=== PATIENT | male | born 1945 | race Caucasian/White ===

== ENCOUNTER 2019-11-08 06:21 | Inpatient (IN) | payer MEDICARE, OTHER, SELFPAY ==
[2019-10-25 09:46] VITALS: BMI 40.7
[2019-11-04 12:38] VITALS: BP 121/89; PULSE 64; RESP 92; O2SAT 14
[2019-11-08] VITALS (19 sets, daily range): BP systolic 93–149; BP diastolic 56–88; PULSE 60–83; RESP 13–97; TEMP 35.8–37.4; O2SAT 13–98; BMI 40.7
--- NOTE | 2019-11-08 | DI.RAD.S_ITS ---
PROCEDURE: XR LUMBAR SPINE 2-3V INDICATIONS: L2-3, L3-4 TLIF TECHNIQUE: 2 views of the lumbar spine were acquired. COMPARISON: None. FINDINGS: Bones: Normal alignment is established after placement of transverse pedicle screws and vertical fixation rods crossing from L2-L4, with interbody cage disc prostheses devices at the 2 intervening disc levels. Soft tissues: Overlying bowel gas pattern is normal. No suspicious soft tissue calcifications. IMPRESSION: Normal alignment established postoperatively, posterior fusion L2-L4 with interbody cage disc prosthesis placement centrally within the disc spaces as expected. Dictated by: Oniel Riley M.D. on 11/08/2019 at 12:47 Approved by: Oniel Riley M.D. on 11/08/2019 at 12:48
--- NOTE | 2019-11-08 07:19 | SUR.PREOP ---
pt reports has chronic numbness in both feet.
--- NOTE | 2019-11-08 07:43 | PM.PREOP ---
Pre-operative Note Interval Note History & Physical reviewed/Exam performed by Physician: Yes Changes to H&P: No
[2019-11-08] MEDS: LACTATED RINGERS 1,000 ML 42 ML IV ×2 (07:48→09:19)
[2019-11-08] MEDS: CLINDAMYCIN 900 MG/50 ML PIGGYBACK 50 MG IV ×3 (07:51→23:53)
--- NOTE | 2019-11-08 08:50 | SUR.OPER ---
Prone on spine table, head in foam head support, padded chest and pelvic supports, gel pad at knees, lower legs supported by pillows; nipples, genitalia and toes free of pressure, arms secured on foam padded arm boards at <90 degrees abduction. Tape over blanket at thigh secured to table.
[2019-11-08] MEDS: BUPIVACAINE LIPOSOME 266 MG/20 ML VIAL INJ (09:03)
[2019-11-08] MEDS: BUPIVACAINE 0.25% W/ EPI 30 ML VIAL INJ (09:03)
[2019-11-08] MEDS: ACETAMINOPHEN 1,000 MG/100 ML VIAL IV (11:20)
--- NOTE | 2019-11-08 12:14 | PM.OP.1 ---
Operative Date/Time/Diagnoses Date of procedure: 11/08/19 Time of procedure: 07:40 Pre-op diagnosis: 1. L2-3, L3-4 spinal stenosis 2. Lumbar scoliosis 3. Lumbar spondylosis with radiculopathy Post-op diagnosis: same Procedure & Clinicians Procedure: 1. L2-3, L3-4 Postero-lateral and posterior interbody fusion 2. L2-3, L3-4 interbody cage placement. 3. L2-3, L3-4 decompressive laminectomy with bilateral facetecomies 4. L2-3, L3-4 Posterior segmental instrumentation 5. [place] of bone marrow from iliac crest 6. Utilization of microsurgical technique and operating microscope Same procedure as scheduled: Yes Indications: Patient has been having chronic back pain and worsening lumbar radiculopathy. Patient failed multiple conservative management with worsening pain weakness and numbness in her lower extremity. Patient has been having difficulty performing activity of daily living. After discussing risks benefits of treatment options, patient elected proceed with surgery. Surgeon: Brannon Kamara National Sales: Angelita Cummins Click Yes if Unassisted: No Anesthesia Type: General Operative Notes Closure Type: primary Specimen(s): none sent Prosthetic devices, grafts, tissues, transplants, or devices: Globus revolve, Rise cages Applied: catheter Estimated Blood Loss (mL): 100 Blood products transfused: none Procedure in detail: Patient was seen in the preoperative area. Risks and benefits of the surgery was discussed with the patient. Informed consent was obtained from the patient and placed in the chart. Surgical site was marked. Patient was taken to the operative room. General anesthesia was administered. Prophylactic antibiotic was given to the patient less than 30 min before the incision was made. Patient was placed into a prone position on the Isai table. Patient's back was then prepped and draped in the sterile fashion. Time-out was performed at this time. Using AP and lateral C-arm imaging the interval between L2-3, L3-4 was identified and marked on patient's back. A 2 inch incision 2 in from midline was made on the right side first. The fascia was incised in line with skin incision. Globus MARS retractors was placed inside the incision and docked onto the L2 and L3 lamina. Using microsurgical technique and operating microscope, a L2 and L3 laminectomy and L2-3, L3-4 facetectomy was performed using a Kerrison rongeur. The disc space at L2-3, L3-4 was identified. And a total diskectomy was performed at L2-3, L3-4 level. The endplates were decorticated using a rasp and shaver. The total diskectomy and decortication was performed at L2-3, L3-4 level in order to to accomplish a L2-3, L3-4 fusion. The local bone from the laminectomy and facetectomy was saved for local bone grafting. After the total diskectomy and decortication was completed, Bio4 bone graft material was combined with local bone that was harvested earlier. At this time, a separate skin is incision was made over the iliac crest. A Jamshidi needle was inserted into the iliac crest through a separate skin incision. 5 cc of bone marrow aspiration was obtained through the separate skin incision using a Jamshidi needle from the iliac crest. The bone marrow aspiration was combined with local bone and the Bio4 bone grafting material. The bone grafting material was placed into the L2-3, L3-4 interbody space along with two cages, one expandable cage at each level. The cages were expanded to their maximum height using the torque limiting screwdriver. At this time a mirror image incision was made on the left side. The fascia was incised in line with the skin incision. Globus MARS retractor was inserted and docked onto the L2-3, L3-4 posterolateral gutter. Using the power drill, posterior-lateral decortication was performed at L2-3, L3-4 level until bleeding cortical bone was identified. The remaining bone grafting material was placed into the L2-3, L3-4 posterior lateral gutter he order to accomplish posterolateral fusion at the L2-3, L3-4 levels. Using the double C-arm technique, pedicle screws were placed into the L2, L3, L4 pedicles bilaterally. This was done by placing the Jamshidi needle into the pedicles, then placing the guidewires over the Jamshidi needle, and finally placing the cannulated screws over the guidewires bilaterally. After the pedicle screws were placed, 2 titanium rods was locked into the heads of the pedicle screws using locking caps and torque limiting screwdriver. Total 6 pedicles screws were placed. After all the hardware was placed, and confirmed with AP and lateral C-arm imaging, the wound was then irrigated with sterile normal saline and packed with Ray-Luz Marina gauze for 3 min to accomplish hemostasis. After the gauze was removed the deep fascia was closed with #1 Vicryl suture. The subcutaneous layer was closed with 2-0 Vicryl. The skin was closed with skin fahad. Patient tolerated the procedure well. There were no complications. Complications: none Post-operative Condition: stable Disposition: PACU Plan for aftercare: Admit to inpatient hospital
[2019-11-08] MEDS: HYDROMORPHONE 2 MG INJ IV ×4 (12:45→13:45)
[2019-11-08] MEDS: LORazepam 2 MG/ML INJ 0.25 MG IV ×5 (12:55→14:00)
[2019-11-08] MEDS: hydrOXYzine 50 MG/ML INJ 25 MG IM (12:58)
--- NOTE | 2019-11-08 14:31 | SUR.PHASEI ---
beside report given to Estuardo Flores RN. Pt stable, some restlessness remains due to back pain. Pt was medicated with Dilaudid, ativan and vistaril for comfort. Cpap remained in use during recovery phase. at bedside. Pt transferred in stable condition
[2019-11-08] MEDS: SODIUM CHLORIDE 0.9% 1,000 ML 100 ML IV ×2 (14:36→22:44)
--- NOTE | 2019-11-08 16:29 | PC.NURSE ---
Addendum entered by Zari Lenz R.N. 11/08/19 22:05: Pt resting quietly all evening. Med @ 2030 for discomfort. IVF continue as per orders. Beltran cath patent clear yellow urine. SCD in place. Call light w/in reach, bed alarm on for pt safety. Continue w/plan of care. Original Note: Pt resting quietly, assisted to BSC. Had episode of apparent vagal response, B/P decreased Lungs clear/diminished. SpO2 96% 2L Dsg to surgical back C/D/with shadow drainage IV of LR infusing into the LAC @ 125cc/hr via pump w/o incidence. Foot SCD in place. Call light w/9in reach, bed alarm on for pt safety.
--- NOTE | 2019-11-08 16:35 | PT-IP ANOTE ---
Received PT orders and attempted to initiate evaluation. According to RECREATION ADVISER, pt wanted to get up to the BSC. BP prior to activity was 133/76 HR 64. He completed log roll to his right side and supine to sit mod A x 1. Stand step pivot transfer to bedside commode on pt's right side required mod A x 2 for safety with pt exhibiting excessive posterior lean. He struggled to keep his eyes open sitting on the commode. BP was assessed at 51/24 HR 71. Pt was able to be roused enough to transfer back to the bed mod A x 2 using the FWW. He was positioned in trendelenberg with BP recovering to 137/88 HR 61 within 3 minutes. Pt was left with nursing attending. PT will follow up in the morning for evaluation.
[2019-11-08] MEDS: OXYCODONE IR 10 MG TABLET PO ×3 (16:58→23:53)
[2019-11-08] MEDS: DOCUSATE 100 MG CAPSULE PO (20:32)
[2019-11-08] MEDS: SENNOSIDES 8.6 MG TABLET 17.2 MG PO (20:33)
[2019-11-08] MEDS: ATORVASTATIN 20 MG TABLET 80 MG PO (20:33)
[2019-11-08] MEDS: carvediloL 25 MG TABLET PO (20:36)
[2019-11-09] VITALS (10 sets, daily range): BP systolic 121–159; BP diastolic 51–79; PULSE 60–76; RESP 18–20; TEMP 36.4–38.2; O2SAT 92–95
--- NOTE | 2019-11-09 00:21 | PC.NURSE ---
Addendum entered by Lashawn Cordoba R.N. 11/09/19 04:46: Patient reports sleep apnea and has CPAP with so CPAP applied and oxygen off; will monitor for need to bleed O2 into CPAP Addendum entered by Lashawn Cordoba R.N. 11/09/19 02:47: Patient reportedly trying to crawl out of bed stating he is in so much pain. Rates severity as 8/10; medicated with IV Dilaudid. Original Note: Patient is alert and oriented. Breath sounds diminished but CTA with RA sat of 89% so oxygen started at 2L/min with sat now at 93%. HRR. Denies nausea. BT hypoactive; denies flatus. Indwelling catheter is patent; urine is clear yellow. Dressing to back is intact with with shadow drainage. Needing assistance to reposition due to pain. Pain currently at 9/10 so medicated with Oxycodone and ice applied after repositioning. Wearing bilateral calf SCD's. CMS is intact. Fall risk score is moderate; bed alarm is activated.
[2019-11-09] MEDS: HYDROMORPHONE 0.5 MG INJ IV ×5 (02:45→22:12)
[2019-11-09] MEDS: OXYCODONE IR 10 MG TABLET PO ×6 (04:32→23:46)
[2019-11-09 05:13] LABS: Hematocrit 39.5 % (41-53); Hemoglobin 13.5 g/dL (13.5-17.5)
--- NOTE | 2019-11-09 07:34 | PM.PNPO.1 ---
Subjective Subjective Date Patient Seen: 11/09/19 Time Patient Seen: 07:34 Interval history: POD #1 s/p L2-[address] Kamara. Patient is having a lot of pain in low back requiring Dilaudid. Has brown catheter in place. He has not been up with PT yet. Exam Vital Signs (past 8 hours): - 11/08/19 23:40 11/09/19 03:45 Temperature 99.3 F 99.4 F Pulse Rate 69 64 Respiratory Rate 14 18 Blood Pressure 119/69 121/63 Pulse Oximetry 90 L 95 Oxygen Delivery Method Nasal Cannula Oxygen Flow Rate 2 Narrative Exam Narrative: Patient sitting on bedside in NAD. He is alert and oriented X3. Dressing has shadow drainage. He was able to stand up at bedside. Calves are soft, compressible, and nontender bilaterally. Objective Labs Result Diagrams: 11/09/19 04:45 Labs: Laboratory Results - last 24 hr 11/09/19 04:45 Hgb 13.5 Hct 39.5 L Assessment & Plan Post-op Postoperative Procedures: Procedures Operation Date: 11/08/19 07:45 Actual Procedures Side Surgeon p L2-3, L3-4 TLIF w/ posterior instrumentation Brannon Kamara MD Patient will mobilie with PT today. No excessive bending, lifting, or twisting. Will give one time dose of decadron for increased pain. Remove brown catheter this AM. Plan to DC once mobilizing safely with adequate pain control. Quality VTE Deep Vein Thrombosis/Pulmonary Embolism Present on Admission: No
[2019-11-09] MEDS: DEXAMETHASONE 10 MG/ML VIAL IV (07:44)
[2019-11-09] MEDS: DOCUSATE 100 MG CAPSULE PO ×2 (07:44→19:36)
[2019-11-09] MEDS: carvediloL 25 MG TABLET PO ×2 (07:45→19:35)
[2019-11-09] MEDS: SODIUM CHLORIDE 0.9% FLUSH 10 ML IV ×4 (07:49→22:14)
--- NOTE | 2019-11-09 09:16 | CM.DANOTE ---
Addendum entered by Bonnie Turner LPN 11/09/19 15:47: Met with pt as planned after review of his therapy notes for today. Introduced self and role.j Pt confirms that he is doing better today than yesterday and that the dose of Decadron was very helpful. His Frannie was present for caregiver training with OT Maureen and pt. Pt says she can help him but she sure can't lift me. He confirms his plan for home setting when stable for same. (do see that FILM RENTAL CLERK is recommending consideration of HH services. OT recommends home with Lark's assist OF NOTE: the spinal surgeons do not typically want their pt's going home with HH therapy. Will leave for d/c planning team tomorrow to follow this further.) Addendum entered by Bonnie Turner LPN 11/09/19 15:37: Admission status: now confirmed as INPT by SRINIVASA Parikh. Original Note: Discharge Planning/Care Management DCP: assessment: case received, EMR reviewed. Pt is a 74 year old male who admitted yesterday for a planned spinal surgery. Surgeon: Dr. Kamara Payer: Medicare and [employer]. PCP: Madelyn Hernandez Payer: Medicare and [employer] Admission status: in review, per SRINIVASA Parikh. Ortho PA Robina did see pt this morning. Noted he has not yet been out of bed with PT, is having a great deal of pain (decadron added) and brown catheter will be removed today. P: per Robina : expected to be: home with Frannie's supportive assist when pt is able to mobilize with adaquate pain control. PT and OT are ordered. Will discuss in Team Rounds and be following prn for d/c issues and options. CM Discharge Assessment Start: 11/09/19 09:15 Freq: Status: Active Protocol: Document 11/09/19 09:15 ITV (Rec: 11/09/19 09:16 ITV [id number]) Discharge Planning Assessment Advance Directives? Yes Advance Directives on File Yes History Provided By Family Member Prior Living Arrangements House Household Members spouse Whiteboard Updated in Patient Room with Yes name and ext. # of Lean Manufacturing Coordinator Review Status In Process Pre-Anesthesia Assessment Start: 10/25/19 09:46 Freq: Status: Complete Protocol: Document 10/25/19 09:46 [facility] (Rec: 10/25/19 10:25 [facility] [id number]) Pre-Anesthesia Assessment Patient Information Reviewed Via Phone Assessment Assessment Completed With Patient Primary Care Provider Madelyn Hernandez Seen Specialist in Last 12 Months Yes Specialist Seen Go Cart Mechanic,Manager Immunology, Orthopedist Primary Language Tajik Front Attendant Required No Height 170.18 cm Weight 117.934 kg Body Mass Index (BMI) 40.7 Hearing Ability Hard of Hearing,Use of Hearing Aid Visual Assist Glasses Dentition Type Teeth, Natural Present Barriers to Learning None Other Aids Yes: CPAP Hx Anesthesia Reactions No Hx Family Anesthesia Reaction No Hx Malignant Hyperthermia No Hx Blood Transfusions No Anesthesia Review Requested Yes: Surgeon requested re: Cardiac alcohol intake current alcohol intake frequency a few times a month Smoking Status Former smoker Tobacco type cigarettes how long ago did patient quit smoking Quit 2002 Substance Use Type does not use Pain Present Pain Reported Musculoskeletal Symptoms Back Pain,Difficulty Walking, Neck Pain,Numbness,Radiating Pain into Limb,Tingling History of Falling (Recent or History of Yes ) Patient is completely paralyzed or No completely immobile Mental Status Oriented to own ability Is patient on oxygen? No Does patient have JOSHI/SOB No Hx Sleep Apnea Yes CPAP/BIPAP use prescribed and used routinely Will Bring CPAP/BIPAP DOS Yes Currently Taking a Beta Fawad Yes: Carvediolol Can You Climb a Flight of Stairs Without Yes SOB Hx Chest Pain No: Pt denies Hx SOB No Hx Syncope or Dizziness Yes Anti-Coagulant Therapy Yes: Abdi-pt has not yet been advised on when to hold Has a Go Cart Mechanic Yes: Dr. Carney Hx Pacemaker/ICD Yes Pacemaker Rep Required? No: Pacer form scanned in and on surgery folder for dos Diet Type At Home Regular dysphagia No Urinary Catheter Present No Hx Urinary Self Catheterization No Diabetes No Presence of External or Internal Medical Yes: Pacemaker, CPAP Devices [place] exposure No Have you had any close contact with No someone diagnosed with NOVEL CORONAVIRUS ? Have you traveled outside the [place] in the last 30 days? Marital Status Lives With spouse Number of Floors (Floors) One Floor Support System Spouse Does the Patient Have Assistance After Yes Surgery Patient Discharge Plan Description Return Home Comment Pt advised 1-2 night length of stay per surgeon Feels Safe in Current Environment Yes Been Physically Hurt or Threatened By a No Person in Current Environment Do you have thoughts of harming yourself None or others? Are you currently considering suicide? No Do you have a plan to hurt yourself or No Plan others? Do You Have Any Spiritual Beliefs That No May Affect Your HC Choices? Do You Have Any Cultural Practices That No May Affect Your HC Choices? Spiritual Referral None Comment Muslim Who Can We Speak to About Patient's Care Family, friends Identifying Code for Release of Patient Declines to issue Information Health Care Proxy/Next of Kin Frannie () Health Care Proxy Emergency Contact Name Frannie () Emergency Contact Advance Directives? Yes Advance Directives on File No Requested Patient Bring Advanced Yes Directives DOS Power of Warp Knitting Machine Operator Yes Power of Warp Knitting Machine Operator Name Frannie () Power of Warp Knitting Machine Operator PAC Instructions Bring CPAP/BIPAP,Durable medical equipment,Medications to take/avoid,Nasal antibiotic ,No ETOH/petroleum product on skin DOS,NPO,Post-op transportation,Pre-surgical wash,Sturdy shoes/comfortable clothes,Do not bring valuables and remove jewelry
--- NOTE | 2019-11-09 09:21 | PC.NURSE ---
Patient alert, oriented to self and place, is forgetful at times able to follow directions. One mod assist with gait belt and walker to chair, reports pain 8/10. Given 10mg oxycodone and 10mg IV decadron as ordered. CHair alarm placed, brown removed at 0830.
[2019-11-09] MEDS: ACETAMINOPHEN 325 MG TABLET 650 MG PO ×2 (10:13→22:12)
--- NOTE | 2019-11-09 10:51 | OT.IP.EVAL ---
Current Diagnoses Other secondary scoliosis, lumbar region (11/08/19) Spinal stenosis, lumbar region without neurogenic claudication (11/08/19) Postlaminectomy syndrome, not elsewhere classified (11/08/19) Arthrodesis status (11/08/19) Surgery Performed Operation Date: 11/08/19 07:45 Actual Procedures p L2-3, L3-4 TLIF w/ posterior instrumentation - Brannon Kamara MD Past Medical History (Last Updated 10/25/19 @ 10:15 by Chrissy Cline RN) Afib (Acute) Amputation finger (Acute 1982) Arthritis (Acute) Eczema (Acute) HTN (hypertension) (Acute) Neuropathy (Acute) DANNA on CPAP (Acute) Pacemaker (Acute 2007) Sinus drainage (Acute) Skin cancer of scalp (Acute) Spinal stenosis (Acute) Surgical History (Last Updated 10/25/19 @ 10:09 by Chrissy Cline RN) History of lumbar surgery (Acute 2008) Hx of arthroscopy of right knee (Acute 2007) Hx of cholecystectomy (Acute 2012) Status post Mohs surgery (Acute) Occupational Therapy Inpatient Evaluation/Re-Eval M1 PT/OT-IP Prior Functional Status Start: 11/08/19 15:35 Freq: NEEDED Status: Active Protocol: Document 11/09/19 11:45 AW (Rec: 11/09/19 12:07 AW [id number]) Medical Review Prior Functional Status Medical History Reviewed Yes Communication WNL. Able to make needs known Mobility and Gait Pt was independent without assistive device for ~100 yards before requiring a 5- minute rest break to recover from radicular pain Activities of Daily Living and IADL's Pt was independent with ADL's but had difficulty with lower body dressing and tended to wear slip on shoes. Prior Functional Level (Other details) Pt and his spouse both drive. They share other household responsibilities. Social History Household Members spouse Living Arrangements House Number of Floors (Floors) One Floor Number of Stairs To Enter/Railing? 2 JC with grab bar on the left when ascending Home Environment Standard Height Toilet,Walk in Shower Home Equipment Front Wheel Walker,Straight Cane,Raised Toilet Seat w/ Armrests,Shower Seat with Backrest,Shaper Set Up Operator,Sock Aid Employment Status Retired Additional Social History Comment Pt lives with his , Frannie, who is available 17/03 and able to assist the patient with all but lifting. M2 OT-IP Current Condition Start: 11/09/19 12:40 Freq: Status: Active Protocol: Document 11/09/19 10:51 PJM (Rec: 11/09/19 12:59 PJM [email or web address]) Occupational Therapy Current Condition Current Condition Evaluation Date 11/09/19 Treatment Diagnosis decreased ADLS, mobility S/P L2-4 PLIF w/decompressive lami Post Operative Precautions Lumbar Precautions Log Roll,No Twisting,Limit Bending,Lifting Restriction of 10 lbs,Gait Belt above Incisional Area M3 OT- IP Subjective and Pain Start: 11/09/19 12:40 Freq: Status: Active Protocol: Document 11/09/19 10:51 PJM (Rec: 11/09/19 12:59 PJM [email or web address]) OT- Subjective Occupational Therapy Visit Type Type Initial Evaluation Visit Start Time 10:09 Visit Stop Time 10:51 Total Visit Minutes 42 Notes Pt's here for education this session. Occupational Therapy Visit Comments Patient Comments I need to use the bathroom. Patient/Caregiver Goals to have less pain during daily tasks an be independent with self care OT Pain Assessment Pain When Pain Assessed After Treatment Pain Present Pain Present Pain Reported Location Back Intensity 7 Scale Used Numeric (1 - 10) Description Aching,Acute M4 OT- IP ADL's Start: 11/09/19 12:40 Freq: Status: Active Protocol: Document 11/09/19 10:51 PJM (Rec: 11/09/19 12:59 PJM [id number]) OT [id number] General Evaluation Self-Feeding Ability Independent OT ADL-Grooming Comments OT Grooming Comments did not occur this session OT ADL-Oral Care Comments Oral Care Comments to be assessed OT ADL-Dressing Comments OT Dressing Comments Began education re: use of keno writer/runner and sock aid to doff and don socks as pt's socks were wet after he voided on floor in bathroom. Pt needs mod verbal cues to doff socks with keno writer/runner and mod assist with max cues to don them with sock aid. Pt's has both these tools from her previous ortho surgery. She will bring them in so pt can practice with them. OT ADL-Toileting General Evaluation Toileting Ability Standby Assistance Comments OT Toileting Comments to urinate standing at toilet OT ADL-Bathing Comments OT Bathing Comments to be assessed M5 OT- IP IADL's Start: 11/09/19 12:40 Freq: Status: Active Protocol: Document 11/09/19 10:51 PJM (Rec: 11/09/19 12:59 PJ [email or web address]) OT-Instrumental Activities of Daily Living Deficits IADL Deficits Identified Deficits Home Safety Awareness Awareness of Need for Assistance at Home Good Awareness Ability to Problem Solve Emergency Able to Problem Solve Situations Medication Management Medication Management No Deficits Identified Money Management Money Management No Deficits Identified Meal Preparation Meal Preparation Caregiver Provides Assist Meal Preparation Comments does most cooking at home Human Factors Scientist Human Factors Scientist Caregiver Provides Assist Human Factors Scientist Comments to assist until pt able Driving Driving Comments to assist until pt able M6 OT- IP Functional Cognition Start: 11/09/19 12:40 Freq: Status: Active Protocol: Document 11/09/19 10:51 PJM (Rec: 11/09/19 12:59 PJ [id number]) Cognitive Factors Limiting Selfcare Function Cognitive Ability Level of Alertness Drowsy Patient Orientation Name,Age,Birthday,Month,Date, Year,Day of Week,Place, Situation Attention Span Ability Capable of Focused Attention Ability to Follow Commands Able to Follow One Step Commands Memory Description Short Term Impaired Problem Solving Ability Unable to Identify Errors, Needs Assist to Identify Solutions Cognitive Comments Cognitive Assessment Comments Pt drowsy this session from pain meds and needs min cues to sustain alertness. Pt will likely need repetition of some information, but verbalizes understanding. OT- Vision and Hearing OT- Hearing Assessment OT- Hearing Assessment Hearing Impaired,Use of Hearing Aids OT- Vision Assessment Visual Acuity WFL,Glasses All The Time M7 OT- IP Mobility and Balance Start: 11/09/19 12:40 Freq: Status: Active Protocol: Document 11/09/19 10:51 PJM (Rec: 11/09/19 12:59 PJ [email or web address]) OT- Bed Mobility Assessment Rolling Type of Rolling Log Rolling,Roll to Left Level of Assistance Minimal Assistance,1 Person Assistance Supine to Sit Supine to Sit Assist Minimal Assistance,1 Person Assistance Scooting Scooting to Edge of Bed Standby Assistance OT-Transfer Assessment Sit to and From Stand Sit to and from Stand Minimal Assistance,1 Person Assistance Transfers Transfer Ability Minimal Assistance,1 Person Assistance Technique Transfer Destination Chair,Toilet Transfer Technique Stand Step Pivot Devices Transfer Assistive Devices Bed Rail,Front Wheeled Walker Comments Mobility Comments Pt takes small steps and moves slowly; especially during log roll OT- Gait Assessment Gait Gait Assistance Required: Contact Guard Assist Distance (Feet) 15 Assistive Devices Assistive Device Gait Belt,Front Wheeled Walker OT- Balance Assessment Sitting Balance and Reactions Static Sitting Balance Ability Good Standing Balance and Reactions Static Standing Balance Ability Good Dynamic Standing Balance Ability Fair Comments Other Balance Tests/Deviations/Treatment with FWW : M8 OT- IP Objective Assessments Start: 11/09/19 12:40 Freq: Status: Active Protocol: Document 11/09/19 10:51 PJM (Rec: 11/09/19 12:59 PJM [id number]) OT Gross Range of Motion Upper Extremity Range of Motion Assessment Within Functional Limits OT Strength Upper Extremity Strength Assessment Within Functional Limits OT- Coordination Assessment Comments Coordination Comments BUE WFL OT-Muscle Tone Assessment Muscle Tone WNL Yes OT Sensation Assessment Comments Summary Comments BUE WNL per pt M9 OT- IP Assessment and Plan Start: 11/09/19 12:40 Freq: Status: Active Protocol: Document 11/09/19 10:51 PJM (Rec: 11/09/19 12:59 PJM [id number]) OT Summary Assessment and Plan Potential Rehabilitation Potential Good Analytic Complexity at Evaluation Low Summary OT Impairments Pain,Balance,Functional Mobility,Grooming,Dressing, Toileting,Bathing,Toilet Transfers,Shower Transfers, Activity Tolerance Assessment Summary Low complexity OT assessment completed and began education re: lumbar spine precautions and adapted ADLS for toileting and lower body dressing. Pt drowsy from pain meds this session but here for education and verbalizes understanding. Pt currently has performance deficits in activity tolerance , standing grooming, lower body dressing, bathing and toileting. He will benefit from 1-2 additional OT visits here to address the goals below. Anticipate pt will continue to improve and be able to return home with his who is available to assist PRN except she cannot due any lifting. Goals Grooming Goal Independent Dressing Goal Standby Assistance,Long Handled Shoe Horn,Shaper Set Up Operator,Sock Aid Toileting Goal Independent Bathing Goal Standby Assistance,Grab Bars, Hand Held Shower Sprayer,Long Handled Sponge or [place] Toilet Transfer Goal Independent,ADA High Toilet Shower Transfer Goal Standby Assistance Patient/Caregiver Education Goal Demonstrate Post-Op Precautions,Demonstrate Energy Conservation and Pacing, Caregiver Independent Assisting Patient OT-Other Goals Grooming to be done standing at sink with good body mechanics and safety awareness . Days to Meet Goals 2 Frequency of Treatment Frequency Of Treatment Once a Day Treatment Plan OT Treatment Plan ADL Training,Functional Mobility,Patient/Family Education,Discharge Planning Discharge Recommendations OT Discharge Recommendations Home with 17/03 Assist Home Equipment Needs long shoe horn, long bath sponge Transportation Needs at Discharge Private Vehicle
--- NOTE | 2019-11-09 11:45 | PT.IIE ---
Current Diagnoses Other secondary scoliosis, lumbar region (11/08/19) Spinal stenosis, lumbar region without neurogenic claudication (11/08/19) Postlaminectomy syndrome, not elsewhere classified (11/08/19) Arthrodesis status (11/08/19) Surgery Performed Operation Date: 11/08/19 07:45 Actual Procedures p L2-3, L3-4 TLIF w/ posterior instrumentation - Brannon Kamara MD Surgical History (Last Updated 10/25/19 @ 10:09 by Chrissy Cline RN) History of lumbar surgery (Acute 2008) Hx of arthroscopy of right knee (Acute 2007) Hx of cholecystectomy (Acute 2012) Status post Mohs surgery (Acute) Medical History (Last Updated 10/25/19 @ 10:15 by Chrissy lCine RN) Afib (Acute) Amputation finger (Acute 1982) Arthritis (Acute) Eczema (Acute) HTN (hypertension) (Acute) Neuropathy (Acute) DANNA on CPAP (Acute) Pacemaker (Acute 2007) Sinus drainage (Acute) Skin cancer of scalp (Acute) Spinal stenosis (Acute) Physical Therapy Inpatient Evaluation/Re-Eval M1 PT/OT-IP Prior Functional Status Start: 11/08/19 15:35 Freq: NEEDED Status: Active Protocol: Document 11/09/19 11:45 AW (Rec: 11/09/19 12:07 AW [id number]) Medical Review Prior Functional Status Medical History Reviewed Yes Communication WNL. Able to make needs known Mobility and Gait Pt was independent without assistive device for ~100 yards before requiring a 5- minute rest break to recover from radicular pain Activities of Daily Living and IADL's Pt was independent with ADL's but had difficulty with lower body dressing and tended to wear slip on shoes. Prior Functional Level (Other details) Pt and his spouse both drive. They share other household responsibilities. Social History Household Members spouse Living Arrangements House Number of Floors (Floors) One Floor Number of Stairs To Enter/Railing? 2 JC with grab bar on the left when ascending Home Environment Standard Height Toilet,Walk in Shower Home Equipment Front Wheel Walker,Straight Cane,Raised Toilet Seat w/ Armrests,Shower Seat with Backrest,Senior Research Manager,Sock Aid Employment Status Retired Additional Social History Comment Pt lives with his , Frannie, who is available 24/7 and able to assist the patient with all but lifting. M2 PT-IP Current Condition Start: 11/08/19 15:35 Freq: NEEDED Status: Active Protocol: Document 11/09/19 11:45 AW (Rec: 11/09/19 12:07 AW [id number]) Physical Therapy Current Condition Current Condition Evaluation Date 11/09/19 Treatment Diagnosis L2-4 TLIF, impaired mobility Onset Date 11/08/19 Precautions Lumbar Precautions Log Roll,No Twisting,Limit Bending,Lifting Restriction of 10 lbs,Gait Belt above Incisional Area Weight Bearing Status Weight Bearing Status Full Weight Bearing M3 PT-IP Subjective Start: 11/08/19 15:35 Freq: NEEDED Status: Active Protocol: Document 11/09/19 11:45 AW (Rec: 11/09/19 12:07 AW [id number]) Subjective Physical Therapy Visit Type Type Initial Evaluation Visit Start Time 10:09 Visit Stop Time 10:33 Total Visit Minutes 24 Notes Pt's , Frannie, present throughout evaluation. Co- treat with OT Maureen. Number of RESOURCE DEVELOPMENT MANAGER Visits 0 Physical Therapy Visit Comments Patient Comments Pt having improved pain control and willing to participate with therapy Patient Goals To go home Therapy Pain Assessment Pain When Pain Assessed At Rest Pain Present Pain Present Pain Reported Location Back Intensity 7 Scale Used Numeric (1 - 10) Pain Management Techniques Re-positioning,Timing of Activity with Medications M4 PT-IP Mobility and Gait Start: 11/08/19 15:35 Freq: NEEDED Status: Active Protocol: Document 11/09/19 11:45 AW (Rec: 11/09/19 12:07 AW [id number]) PT-Bed Mobility Assessment Rolling Type of Rolling Log Rolling,Roll to Left Level of Assist Contact Guard Assistance, Minimal Assistance Supine to Sit Supine to Sit Minimal Assistance,1 Person Assistance,Bedrails Scooting Scooting to Edge of Bed Standby Assistance PT-Transfer Assessment Sit to and From Stand Sit to and from Stand Minimal Assistance,1 Person Assistance,Use of Upper Extremities Equipment Transfer Assistive Device Gait Belt,Front Wheeled Walker Orthotic/Prosthetic Devices or Brace: No Transfers Transfer Destination Chair,Toilet Transfer Technique pt ambulated with FWW Transfer Ability Level of Assist Contact Guard Assistance,1 Person Assistance,Use of Upper Extremities Comments Mobility Comments Pt encountered sitting up in bed. He completed log roll to his left side CGA to min assist and cues to avoid twisting. Supine to sit was completed min A x 1 and cues for sequencing. He completed sit to stand min A x 1 and ambulated to the toilet with FWW CGA. With cues to push the walker over the toilet, the pt stood SBA to urinate but voided on the floor. He ambulated to the chair with FWW CGA and transferred to the chair CGA and cues for using BUE to assist with lowering in order to avoid rotation. Pt was positioned in the chair and left with OT for further assessment. Gait Assessment Gait Gait Assistance Required: Contact Guard Assist Distance (Feet) 12 Able to Maintain Weight Bearing Status Yes During Gait Assistive Devices Assistive Device Gait Belt,Front Wheeled Walker Orthotic/Prosthetic Devices or Brace: No Gait Deviations General Gait Pattern Antalgic,Decreased Stride Length,Decreased Feet Clearance,Flexed Trunk,Wide Based Gait Factors Limiting Gait Function Factors Limiting Gait Function Decreased Activity Tolerance, Decreased Strength,Limited Range of Motion,Pain,Poor Balance,Poor Safety Awareness Comments Gait Comments See mobility comments for details. Stair Climbing Assessment Comments Stair Climbing Comments Not assessed this visit. PT-Balance Assessment Sitting Balance and Reactions Static Sitting Balance Ability Good Dynamic Sitting Balance Ability Good Standing Balance and Reactions Static Standing Balance Ability Fair Dynamic Standing Balance Ability Fair Device Used FWW M5 PT-IP Objective Assessments Start: 11/08/19 15:35 Freq: NEEDED Status: Active Protocol: Document 11/09/19 11:45 AW (Rec: 11/09/19 12:07 AW [id number]) Orientation Orientation/Cognition Level of Alertness Alert Orientation Name,Day of Week,Place, Situation Language Function Ability No Deficits Noted Safety Awareness Decreased Safety Awareness Memory Description No Deficits Noted Gross Range of Motion Lower Extremity ROM Assessment Bilaterally Impaired Strength Lower Extremity Strength Assessment Bilaterally Impaired Hip 3+/5 Knee 4/5 Ankle 4/5 Coordination Assessment Gross Coordination Gross Coordination WNL Sensation Assessment Sensation Gross Sensation WNL Muscle Tone Muscle Tone WNL Yes M6 PT-IP Treatment Start: 11/08/19 15:35 Freq: NEEDED Status: Active Protocol: Document 11/09/19 11:45 AW (Rec: 11/09/19 12:07 AW [id number]) Physical Therapy Treatment Education Education Provided Precautions,Weight Bearing Status,Post-Op Packet,Safety Other Treatments Other Treatment Performed Provided education on role of PT, plan of care, spinal precautions, and safe use of FWW. Also initiated discharge planning conversation. M7 PT-IP Assessment and Plan Start: 11/08/19 15:35 Freq: NEEDED Status: Active Protocol: Document 11/09/19 11:45 AW (Rec: 11/09/19 12:07 AW [id number]) PT Summary Assessment and Plan Potential Rehabilitation Potential Good Status of Condition at Evaluation Stable Summary Impairments Pain,ROM,Strength,Balance,Bed Mobility,Transfers,Gait, Activity Tolerance Assessment Summary Corby is a 74 yo man seen for PT evaluation on POD1 following L2-4 TLIF. He was independent with all functional mobility at baseline. On evaluation, he required CGA to min assist for bed mobility, transfers, and gait with FWW and demonstrated limited activity tolerance largely due to pain. Discussed discharge options with pt and his spouse who both expressed concern over considering SNF rehab at this time due to unknowns and increased potential for exposure to COVID-19. Both were willing to consider home health therapy which this PT agrees with at this time as plan A. Goals Bed Mobility Goal Standby Assistance Transfer Goal Standby Assistance,Front Wheeled Walker Gait Goal Standby Assistance,Front Wheel Walker Gait Distance 75 Other Goals - up/down 2 stairs with left rail ascending SBA Days to Meet Goals 3 Frequency of Treatment Frequency Of Treatment Twice a Day Treatment Plan Physical Therapy Treatment Plan Bed Mobility Training,Transfer Training,Gait Training, Therapeutic Exercise,Balance Retraining,Post Op Education, Discharge Planning,Hot or Cold Pack,Neuromuscular Re-ed, Coordination Retraining,Manual Therapy Other Recommendations and Next Treatment progress ambulation, trial Focus stairs if able Recommendations To Nursing Amount of Assist Needed 1 Person Assist Discharge Recommendations PT Discharge Recommendations Home with Assistance,Home Health Transportation Needs at Discharge Private Vehicle
--- NOTE | 2019-11-09 14:57 | PT.IPTN ---
Current Diagnoses Other secondary scoliosis, lumbar region (11/08/19) Spinal stenosis, lumbar region without neurogenic claudication (11/08/19) Postlaminectomy syndrome, not elsewhere classified (11/08/19) Arthrodesis status (11/08/19) Surgery Performed Operation Date: 11/08/19 07:45 Actual Procedures p L2-3, L3-4 TLIF w/ posterior instrumentation - Brannon Kamara MD Physical Therapy Treatment Note M2 PT-IP Current Condition Start: 11/08/19 15:35 Freq: NEEDED Status: Active Protocol: Document 11/09/19 11:45 AW (Rec: 11/09/19 12:07 AW [id number]) Physical Therapy Current Condition Current Condition Evaluation Date 11/09/19 Treatment Diagnosis L2-4 TLIF, impaired mobility Onset Date 11/08/19 Precautions Lumbar Precautions Log Roll,No Twisting,Limit Bending,Lifting Restriction of 10 lbs,Gait Belt above Incisional Area Weight Bearing Status Weight Bearing Status Full Weight Bearing M3 PT-IP Subjective Start: 11/08/19 15:35 Freq: NEEDED Status: Active Protocol: Document 11/09/19 14:57 CLB (Rec: 11/09/19 15:33 CLB [id number]) Subjective Physical Therapy Visit Type Type Treatment Note Visit Start Time 14:57 Visit Stop Time 15:13 Total Visit Minutes 16 Number of MOTOR CHECKER Visits 1 Physical Therapy Visit Comments Patient Comments Pt reports pain 5/10 at rest with increase in pain during mobility. Therapy Pain Assessment Pain When Pain Assessed At Rest Pain Present Pain Present Pain Reported Location Back Intensity 5 Scale Used Numeric (1 - 10) Pain Management Techniques Re-positioning,Timing of Activity with Medications M4 PT-IP Mobility and Gait Start: 11/08/19 15:35 Freq: NEEDED Status: Active Protocol: Document 11/09/19 14:57 CLB (Rec: 11/09/19 15:33 CLB [id number]) PT-Transfer Assessment Sit to and From Stand Sit to and from Stand Minimal Assistance,1 Person Assistance,Use of Upper Extremities Equipment Transfer Assistive Device Gait Belt,Front Wheeled Walker Orthotic/Prosthetic Devices or Brace: No Transfers Transfer Destination Chair,Toilet Transfer Technique pt ambulated with FWW Transfer Ability Level of Assist Contact Guard Assistance,1 Person Assistance,Use of Upper Extremities Comments Mobility Comments Pt required Min A for sit<> stand, pt ambulated to BR and required CGA for standing balance. Pt then ambulated ~ 60ft with small shuffled steps and cues for walker use. Pt reported increase in pain and requested to return to chair. Pt left in chair with chair alarm on and all other needs within reach. Gait Assessment Gait Gait Assistance Required: Contact Guard Assist Distance (Feet) 60 Able to Maintain Weight Bearing Status Yes During Gait Assistive Devices Assistive Device Gait Belt,Front Wheeled Walker Orthotic/Prosthetic Devices or Brace: No Gait Deviations General Gait Pattern Antalgic,Decreased Stride Length,Decreased Feet Clearance,Flexed Trunk,Wide Based Gait Factors Limiting Gait Function Factors Limiting Gait Function Decreased Activity Tolerance, Decreased Strength,Limited Range of Motion,Pain,Poor Balance,Poor Safety Awareness Comments Gait Comments See mobility comments for details. Stair Climbing Assessment Comments Stair Climbing Comments Not assessed this visit. PT-Balance Assessment Sitting Balance and Reactions Static Sitting Balance Ability Good Dynamic Sitting Balance Ability Good Standing Balance and Reactions Static Standing Balance Ability Fair Dynamic Standing Balance Ability Fair Device Used FWW M5 PT-IP Objective Assessments Start: 11/08/19 15:35 Freq: NEEDED Status: Active Protocol: Document 11/09/19 11:45 AW (Rec: 11/09/19 12:07 AW [id number]) Orientation Orientation/Cognition Level of Alertness Alert Orientation Name,Day of Week,Place, Situation Language Function Ability No Deficits Noted Safety Awareness Decreased Safety Awareness Memory Description No Deficits Noted Gross Range of Motion Lower Extremity ROM Assessment Bilaterally Impaired Strength Lower Extremity Strength Assessment Bilaterally Impaired Hip 3+/5 Knee 4/5 Ankle 4/5 Coordination Assessment Gross Coordination Gross Coordination WNL Sensation Assessment Sensation Gross Sensation WNL Muscle Tone Muscle Tone WNL Yes M6 PT-IP Treatment Start: 11/08/19 15:35 Freq: NEEDED Status: Active Protocol: Document 11/09/19 11:45 AW (Rec: 11/09/19 12:07 AW [id number]) Physical Therapy Treatment Education Education Provided Precautions,Weight Bearing Status,Post-Op Packet,Safety Other Treatments Other Treatment Performed Provided education on role of PT, plan of care, spinal precautions, and safe use of FWW. Also initiated discharge planning conversation. M7 PT-IP Assessment and Plan Start: 11/08/19 15:35 Freq: NEEDED Status: Active Protocol: Document 11/09/19 14:57 CLB (Rec: 11/09/19 15:33 CLB [id number]) PT Summary Assessment and Plan Potential Rehabilitation Potential Good Status of Condition at Evaluation Stable Summary Impairments Pain,ROM,Strength,Balance,Bed Mobility,Transfers,Gait, Activity Tolerance Assessment Summary Pt with increased pain with mobility. Pt requires Min A for sit<>stand and CGA during gait. Pt ambulated ~60 ft with small shuffled steps with standing rest breaks every 10ft. Pt denied dizziness or lightheadedness. Goals Bed Mobility Goal Standby Assistance Transfer Goal Standby Assistance,Front Wheeled Walker Gait Goal Standby Assistance,Front Wheel Walker Gait Distance 75 Other Goals - up/down 2 stairs with left rail ascending SBA Days to Meet Goals 3 Frequency of Treatment Frequency Of Treatment Twice a Day Treatment Plan Physical Therapy Treatment Plan Bed Mobility Training,Transfer Training,Gait Training, Therapeutic Exercise,Balance Retraining,Post Op Education, Discharge Planning,Hot or Cold Pack,Neuromuscular Re-ed, Coordination Retraining,Manual Therapy Other Recommendations and Next Treatment progress ambulation, trial Focus stairs if able Recommendations To Nursing Amount of Assist Needed 1 Person Assist Discharge Recommendations PT Discharge Recommendations Home with Assistance,Home Health Transportation Needs at Discharge Private Vehicle
[2019-11-09] MEDS: ATORVASTATIN 20 MG TABLET 80 MG PO (19:36)
[2019-11-09] MEDS: hydrOXYzine pamoate 25 MG CAPSULE PO (19:36)
[2019-11-09] MEDS: SENNOSIDES 8.6 MG TABLET 17.2 MG PO (19:36)
--- NOTE | 2019-11-09 22:19 | PC.NURSE ---
Addendum entered by Caprice Harrison R.N. 11/09/19 22:45: temp reassessed at 99.6 then 98.7 30 minutes later. Original Note: pt reporting feeling warm. SLEEPING CAR PORTER obtained temp of 100.7. We applied a cold compress to forehead and pulled back blankets from feet. I administered 650mg Tylenol for the temperature and 0.5IV Dilaudid for 6/10 back pain. pt sipping on ice water and utilizing IS.
[2019-11-10 00:26] VITALS: BP 136/70; PULSE 60; RESP 20; TEMP 36.9; O2SAT 92
[2019-11-10 05:42] VITALS: BP 152/75; PULSE 71; RESP 18; TEMP 36.4; O2SAT 97
[2019-11-10] MEDS: OXYCODONE IR 10 MG TABLET PO (06:30)
[2019-11-10 08:10] VITALS: BP 165/78; PULSE 61; RESP 20; TEMP 36.9; O2SAT 97
--- NOTE | 2019-11-10 08:31 | PM.PN.1 ---
Subjective Subjective Date Patient Seen: 11/10/19 Time Patient Seen: 08:31 Interval history: Patient is POD# 2 s/p TLIF with Dr. Kamara. Did note some pain relief with Decadron dose yesterday but continues to have severe pain about the incision. Did mobilize about the room with PT yesterday. Exam Vital Signs (past 8 hours): - 11/10/19 05:42 Temperature 97.6 F Pulse Rate 71 Respiratory Rate 18 Blood Pressure 152/75 H Pulse Oximetry 97 Oxygen Delivery Method Room Air,CPAP Oxygen Flow Rate 0 Narrative Exam Narrative: 74 year old male resting in bed, alert and oriented in no acute distress. Dressing to lumbar spine CDI. 5/5 BLE. Calves soft and compressible. Objective Labs Result Diagrams: 11/09/19 04:45 Assessment & Plan Assessment & Plan narrative: Patient progressing as expected after TLIF. He was given one time dose of Decadron with some relief. Will add 4mg Q6hrs for 4 additional doses. Continued to utilized IV Dilaudid yesterday as well as Oxycodone 10mg. Will transition today to Dilaudid 2mg or 4mg for moderate to severe pain. Continue to mobilize with PT, with better pain control will likely mobilize more effectively. Possible discharge to home later today or tomorrow pending PT. Quality VTE Deep Vein Thrombosis/Pulmonary Embolism Present on Admission: No
[2019-11-10] MEDS: carvediloL 25 MG TABLET PO ×2 (09:32→21:18)
[2019-11-10] MEDS: DOCUSATE 100 MG CAPSULE PO ×2 (09:32→21:17)
[2019-11-10] MEDS: SODIUM CHLORIDE 0.9% FLUSH 10 ML IV ×3 (09:32→23:54)
[2019-11-10] MEDS: DEXAMETHASONE 4 MG/ML VIAL IV ×4 (09:34→23:53)
[2019-11-10] MEDS: HYDROMORPHONE 2 MG TABLET PO ×4 (10:07→21:17)
[2019-11-10 11:28] VITALS: BP 138/63; PULSE 66; RESP 20; TEMP 37.6; O2SAT 95
--- NOTE | 2019-11-10 11:39 | PT.IPTN ---
Current Diagnoses Other secondary scoliosis, lumbar region (11/08/19) Spinal stenosis, lumbar region without neurogenic claudication (11/08/19) Postlaminectomy syndrome, not elsewhere classified (11/08/19) Arthrodesis status (11/08/19) Surgery Performed Operation Date: 11/08/19 07:45 Actual Procedures p L2-3, L3-4 TLIF w/ posterior instrumentation - Brannon Kamara MD Physical Therapy Treatment Note M2 PT-IP Current Condition Start: 11/08/19 15:35 Freq: NEEDED Status: Active Protocol: Document 11/09/19 11:45 AW (Rec: 11/09/19 12:07 AW [id number]) Physical Therapy Current Condition Current Condition Evaluation Date 11/09/19 Treatment Diagnosis L2-4 TLIF, impaired mobility Onset Date 11/08/19 Precautions Lumbar Precautions Log Roll,No Twisting,Limit Bending,Lifting Restriction of 10 lbs,Gait Belt above Incisional Area Weight Bearing Status Weight Bearing Status Full Weight Bearing M3 PT-IP Subjective Start: 11/08/19 15:35 Freq: NEEDED Status: Active Protocol: Document 11/10/19 10:46 LJ (Rec: 11/10/19 11:39 LJ [email or web address]) Subjective Physical Therapy Visit Type Type Treatment Note Visit Start Time 10:46 Visit Stop Time 11:14 Total Visit Minutes 28 Number of STRATEGY ANALYST Visits 2 Physical Therapy Visit Comments Patient Comments Having increased pain in LB. Asking SHIPPING AND RECEIVING ASSOCIATE to position pillow behind. At suggestion of STRATEGY ANALYST, pt willing to get up and attempt ambulation Therapy Pain Assessment Pain When Pain Assessed At Rest Pain Present Pain Present Pain Reported M4 PT-IP Mobility and Gait Start: 11/08/19 15:35 Freq: NEEDED Status: Active Protocol: Document 11/10/19 10:46 LJ (Rec: 11/10/19 11:39 LJ [id number]) PT-Bed Mobility Assessment Rolling Type of Rolling Roll to Left Level of Assist Contact Guard Assistance, Minimal Assistance Supine to Sit Supine to Sit Minimal Assistance,1 Person Assistance,Bedrails Scooting Scooting to Edge of Bed Standby Assistance PT-Transfer Assessment Sit to and From Stand Sit to and from Stand Contact Guard Assistance,1 Person Assistance,Use of Upper Extremities Equipment Transfer Assistive Device Gait Belt,Front Wheeled Walker Orthotic/Prosthetic Devices or Brace: No Transfers Transfer Destination Chair,Toilet Transfer Technique pt ambulated with FWW Transfer Ability Level of Assist Contact Guard Assistance,1 Person Assistance,Use of Upper Extremities Comments Mobility Comments Pt required CGA for sit<>stand . Pt attempted to pull self up to standing using FWW which STRATEGY ANALYST had to steady and correct. Stood at toilet using FWW for balance before and after ambulation. Pt reported increased pain with standing at toileet. Gait Assessment Gait Gait Assistance Required: Contact Guard Assist Distance (Feet) 200 Able to Maintain Weight Bearing Status Yes During Gait Assistive Devices Assistive Device Gait Belt,Front Wheeled Walker Orthotic/Prosthetic Devices or Brace: No Gait Deviations General Gait Pattern Antalgic,Decreased Stride Length,Decreased Feet Clearance,Flexed Trunk,Wide Based Gait Factors Limiting Gait Function Factors Limiting Gait Function Decreased Activity Tolerance, Decreased Strength,Limited Range of Motion,Pain,Poor Balance,Poor Safety Awareness Comments Gait Comments Pt ambulated in hallway with slow pace and several standing rest breaks due to increased pain with ambulation. He uses FWW appropriately and posture is good with ambulation. Stair Climbing Assessment Comments Stair Climbing Comments Not assessed this visit. M5 PT-IP Objective Assessments Start: 11/08/19 15:35 Freq: NEEDED Status: Active Protocol: Document 11/09/19 11:45 AW (Rec: 11/09/19 12:07 AW [id number]) Orientation Orientation/Cognition Level of Alertness Alert Orientation Name,Day of Week,Place, Situation Language Function Ability No Deficits Noted Safety Awareness Decreased Safety Awareness Memory Description No Deficits Noted Gross Range of Motion Lower Extremity ROM Assessment Bilaterally Impaired Strength Lower Extremity Strength Assessment Bilaterally Impaired Hip 3+/5 Knee 4/5 Ankle 4/5 Coordination Assessment Gross Coordination Gross Coordination WNL Sensation Assessment Sensation Gross Sensation WNL Muscle Tone Muscle Tone WNL Yes M6 PT-IP Treatment Start: 11/08/19 15:35 Freq: NEEDED Status: Active Protocol: Document 11/10/19 10:46 FLORI (Rec: 11/10/19 11:39 LJ [email or web address]) Physical Therapy Treatment Education Education Provided Precautions,Safety M7 PT-IP Assessment and Plan Start: 11/08/19 15:35 Freq: NEEDED Status: Active Protocol: Document 11/10/19 10:46 LJ (Rec: 11/10/19 11:39 LJ [id number]) PT Summary Assessment and Plan Potential Rehabilitation Potential Good Summary Impairments Pain,ROM,Strength,Balance,Bed Mobility,Transfers,Gait, Activity Tolerance Assessment Summary Pt had pain medication within 1 hour of treatment which he states has not worked. Grimmacing and calling out with movement. Bertha to get into seated position on side of bed. CGA and cues to use arms to push off bed for standing. Pt increased ambulation distance but required several standing breaks to breathe through the pain. Pt returned to toilet and stood for 2 monutes to urinate leaning on FWW. Ambulated to chair SBA and sat into chair with cues to reach back and lower self slowly. Will attempt stairs and schedule caregiver training with for tomorrow morning . Goals Bed Mobility Goal Standby Assistance Transfer Goal Standby Assistance,Front Wheeled Walker Gait Goal Standby Assistance,Front Wheel Walker Gait Distance 75 Other Goals - up/down 2 stairs with left rail ascending SBA Days to Meet Goals 3 Frequency of Treatment Frequency Of Treatment Twice a Day Treatment Plan Physical Therapy Treatment Plan Bed Mobility Training,Transfer Training,Gait Training, Therapeutic Exercise,Balance Retraining,Post Op Education, Discharge Planning,Hot or Cold Pack,Neuromuscular Re-ed, Coordination Retraining,Manual Therapy Other Recommendations and Next Treatment trial stairs, schedule CG Focus training for tomorrow morning Recommendations To Nursing Amount of Assist Needed 1 Person Assist Discharge Recommendations PT Discharge Recommendations Home with Assistance,Home Health Transportation Needs at Discharge Private Vehicle
--- NOTE | 2019-11-10 13:31 | OT.IP.TRT ---
Current Diagnoses Other secondary scoliosis, lumbar region (11/08/19) Spinal stenosis, lumbar region without neurogenic claudication (11/08/19) Postlaminectomy syndrome, not elsewhere classified (11/08/19) Arthrodesis status (11/08/19) Surgery Performed Operation Date: 11/08/19 07:45 Actual Procedures p L2-3, L3-4 TLIF w/ posterior instrumentation - Brannon Kamara MD Occupational Therapy Treatment Note M2 OT-IP Current Condition Start: 11/09/19 12:40 Freq: Status: Active Protocol: Document 11/09/19 10:51 PJM (Rec: 11/09/19 12:59 PJM [email or web address]) Occupational Therapy Current Condition Current Condition Evaluation Date 11/09/19 Treatment Diagnosis decreased ADLS, mobility S/P L2-4 PLIF w/decompressive lami Post Operative Precautions Lumbar Precautions Log Roll,No Twisting,Limit Bending,Lifting Restriction of 10 lbs,Gait Belt above Incisional Area M3 OT- IP Subjective and Pain Start: 11/09/19 12:40 Freq: Status: Active Protocol: Document 11/10/19 13:31 PJM (Rec: 11/10/19 14:48 PJM [email or web address]) OT- Subjective Occupational Therapy Visit Type Type Treatment Note Visit Start Time 13:05 Visit Stop Time 13:31 Total Visit Minutes 26 Notes Pt up in chair and agreeable to tx. Occupational Therapy Visit Comments Patient Comments I feel better today. Patient/Caregiver Goals to go home tomorrow, to have less back pain during daily tasks at home OT Pain Assessment Pain When Pain Assessed After Treatment Pain Present Pain Present Pain Reported Location Back Intensity 4 Scale Used Numeric (1 - 10) Description Aching,Acute Pain Behaviors Facial Grimacing,Guarding, Wincing Management Techniques Distraction,Re-positioning, Timing of Activity with Medications M4 OT- IP ADL's Start: 11/09/19 12:40 Freq: Status: Active Protocol: Document 11/10/19 13:31 PJM (Rec: 11/10/19 14:48 PJM [id number]) OT ADL-Grooming General Evaluation Grooming Ability Independent Areas Needing Assistance Shaving Comments OT Grooming Comments standing at sink with FWW after education re: body mechanics OT ADL-Oral Care General Eval Oral Care Ability Independent Devices Oral Care Devices Toothbrush Comments Oral Care Comments standing at sink with FWW after education re: body mechanics, stood 5 min total with no LOB and good body mechanics OT ADL-Dressing General Eval Lower Body Dressing Ability Standby Assistance Areas Needing Assistance Underpants/Brief,Socks Assistive Devices Dressing Assistive Devices Shop Hand,Sock Aid Comments OT Dressing Comments Pt able to don and doff undershorts to knees with SBA with child welfare caseworker; doffed and donned B socks with child welfare caseworker and sock aid. Pt requesting hard sock aid and long shoe horn for home use; can also assist PRN OT ADL-Toileting Comments OT Toileting Comments pt SBA to urinate standing at toilet OT ADL-Bathing Devices Bathing Equipment Long Handled Sponge or [place], Hand Held Shower Sprayer, Shower Chair without Arms Comments OT Bathing Comments Pt declines to shower here, prefers to do at home. Provided education re: body mechanics,use of long bath brush and methods to keep incision dry. can assist PRN. M5 OT- IP IADL's Start: 11/09/19 12:40 Freq: Status: Active Protocol: Document 11/09/19 10:51 PJM (Rec: 11/09/19 12:59 PJM [id number]) OT-Instrumental Activities of Daily Living Deficits IADL Deficits Identified Deficits Home Safety Awareness Awareness of Need for Assistance at Home Good Awareness Ability to Problem Solve Emergency Able to Problem Solve Situations Medication Management Medication Management No Deficits Identified Money Management Money Management No Deficits Identified Meal Preparation Meal Preparation Caregiver Provides Assist Meal Preparation Comments does most cooking at home Carding Doubler Carding Doubler Caregiver Provides Assist Carding Doubler Comments to assist until pt able Driving Driving Comments to assist until pt able M6 OT- IP Functional Cognition Start: 11/09/19 12:40 Freq: Status: Active Protocol: Document 11/10/19 13:31 PJM (Rec: 11/10/19 14:48 PJM [id number]) Cognitive Factors Limiting Selfcare Function Cognitive Comments Cognitive Assessment Comments Pt alert and oriented and demonstrates good understanding of all education . He recalls education from yesterday's session. M7 OT- IP Mobility and Balance Start: 11/09/19 12:40 Freq: Status: Active Protocol: Document 11/10/19 13:31 PJM (Rec: 11/10/19 14:48 PJM [email or web address]) OT-Transfer Assessment Sit to and From Stand Sit to and from Stand Contact Guard Assistance,1 Person Assistance Transfers Transfer Ability Standby Assistance,1 Person Assistance Technique Transfer Destination Chair Transfer Technique Stand Step Pivot Devices Transfer Assistive Devices Gait Belt,Front Wheeled Walker Comments Mobility Comments pt struggles with body mechanics for sit to stand; needs to hinge further forward at hips; discussed with P.T. who will provide further practice. OT- Gait Assessment Gait Gait Assistance Required: Standby Assistance Distance (Feet) 25 Assistive Devices Assistive Device Gait Belt,Front Wheeled Walker Comments Gait Ability Comments no LOB noted with FWW OT- Balance Assessment Sitting Balance and Reactions Static Sitting Balance Ability Good Dynamic Sitting Balance Ability Good Standing Balance and Reactions Static Standing Balance Ability Good Dynamic Standing Balance Ability Good Comments Other Balance Tests/Deviations/Treatment during grooming standing at : sink M9 OT- IP Assessment and Plan Start: 11/09/19 12:40 Freq: Status: Active Protocol: Document 11/10/19 13:31 PJM (Rec: 11/10/19 14:48 PJM [id number]) OT Summary Assessment and Plan Potential Rehabilitation Potential Good Summary OT Impairments Pain,Functional Mobility, Toileting Progress Towards Goals Progressing Toward Goals Assessment Summary Pt presenting with better pain control today with increased activity tolerance and independence in self care skills as described above. Pt needs min verbal cues to to avoid twisting during functional tasks. Pt having difficulty with body mechanics of sit to stand. Practiced x3 and discussed with P.T. who will provide further education. Plan one additional OT visit for education re: toilet paper aids and car transfers. Pt plans to d/c home tomorow. Goals Grooming Goal Independent Dressing Goal Standby Assistance,Long Handled Shoe Horn,Shop Hand,Sock Aid Toileting Goal Independent Bathing Goal Standby Assistance,Grab Bars, Hand Held Shower Sprayer,Long Handled Sponge or [place] Toilet Transfer Goal Independent,ADA High Toilet Shower Transfer Goal Standby Assistance Patient/Caregiver Education Goal Demonstrate Post-Op Precautions,Demonstrate Energy Conservation and Pacing, Caregiver Independent Assisting Patient OT-Other Goals Grooming to be done standing at sink with good body mechanics and safety awareness . Days to Meet Goals 1 Frequency of Treatment Frequency Of Treatment Once a Day Treatment Plan OT Treatment Plan ADL Training,Functional Mobility,Patient/Family Education,Discharge Planning Other Treatment Recommendations and Next toilet paper aids Treatment Focus car transfers Discharge Recommendations OT Discharge Recommendations Home with 17/03 Assist Home Equipment Needs toilet paper aid? Transportation Needs at Discharge Private Vehicle
--- NOTE | 2019-11-10 14:19 | PT.IPTN ---
Current Diagnoses Other secondary scoliosis, lumbar region (11/08/19) Spinal stenosis, lumbar region without neurogenic claudication (11/08/19) Postlaminectomy syndrome, not elsewhere classified (11/08/19) Arthrodesis status (11/08/19) Surgery Performed Operation Date: 11/08/19 07:45 Actual Procedures p L2-3, L3-4 TLIF w/ posterior instrumentation - Brannon Kamara MD Physical Therapy Treatment Note M2 PT-IP Current Condition Start: 11/08/19 15:35 Freq: NEEDED Status: Active Protocol: Document 11/09/19 11:45 AW (Rec: 11/09/19 12:07 AW [id number]) Physical Therapy Current Condition Current Condition Evaluation Date 11/09/19 Treatment Diagnosis L2-4 TLIF, impaired mobility Onset Date 11/08/19 Precautions Lumbar Precautions Log Roll,No Twisting,Limit Bending,Lifting Restriction of 10 lbs,Gait Belt above Incisional Area Weight Bearing Status Weight Bearing Status Full Weight Bearing M3 PT-IP Subjective Start: 11/08/19 15:35 Freq: NEEDED Status: Active Protocol: Document 11/10/19 13:31 LJ (Rec: 11/10/19 14:18 LJ [email or web address]) Subjective Physical Therapy Visit Type Type Treatment Note Visit Start Time 13:31 Visit Stop Time 13:54 Total Visit Minutes 23 Notes pt finishing with OT Physical Therapy Visit Comments Patient Comments Pt willing to trial stairs Therapy Pain Assessment Pain When Pain Assessed At Rest Pain Present Pain Present Pain Reported M4 PT-IP Mobility and Gait Start: 11/08/19 15:35 Freq: NEEDED Status: Active Protocol: Document 11/10/19 13:31 LJ (Rec: 11/10/19 14:18 LJ [id number]) PT-Bed Mobility Assessment Rolling Type of Rolling Roll to Right Level of Assist Contact Guard Assistance, Minimal Assistance Sit to Supine Sit to Supine Contact Guard Assistance, Minimal Assistance,Head of Bed Elevated,Bedrails Scooting Scooting to Edge of Bed Standby Assistance PT-Transfer Assessment Sit to and From Stand Sit to and from Stand Contact Guard Assistance, Minimal Assistance,1 Person Assistance,Use of Upper Extremities Equipment Transfer Assistive Device Gait Belt,Front Wheeled Walker Orthotic/Prosthetic Devices or Brace: No Transfers Transfer Destination Bed Transfer Technique pt ambulated with FWW Transfer Ability Level of Assist Contact Guard Assistance,1 Person Assistance,Use of Upper Extremities Comments Mobility Comments Pt has tendancy to flex trunk on transfers and was educated on lhip hinging with demo from [employer]ATING MACHINE OPERATOR. Standing from chair resulted in pt jerking himself to standing causing increased pain. HY[employer]ATING MACHINE OPERATOR and OT preventing him from loss of balance. Once standing pt is more stable. Pt controlled sitting into WC for ride to trial stairs. Also , standing and sitting to/from WC at stairs was much better with hip hinging and control. Pt required Bertha with LEs getting back into bed after stair trial. Gait Assessment Gait Gait Assistance Required: Contact Guard Assist Distance (Feet) 30 Able to Maintain Weight Bearing Status Yes During Gait Assistive Devices Assistive Device Gait Belt,Front Wheeled Walker Orthotic/Prosthetic Devices or Brace: No Gait Deviations General Gait Pattern Antalgic,Decreased Stride Length,Decreased Feet Clearance,Flexed Trunk,Wide Based Gait Factors Limiting Gait Function Factors Limiting Gait Function Decreased Activity Tolerance, Decreased Strength,Limited Range of Motion,Pain,Poor Balance,Poor Safety Awareness Comments Gait Comments Pt ambulated into hallway to . He had just walked with OT and did not want to attempt further walking prior to stairs. Stair Climbing Assessment Evaluation Level of Assist On Stairs Contact Guard Assistance,1 Person Assistance Devices Stair Climbing Assistive Devices Left Railing,Right Railing Technique/Endurance Stair Climbing Direction Ascend and Descend Stair Climbing Technique Step to Step Number of Steps Climbed 3 Stair Climbing Set # Repetitions (reps) 1 Comments Stair Climbing Comments Pt needing cues to use stronger leg to go up stairs and leading with weaker one going down. Heavy use of railing with hand hold assist and CGA to descend. Pt began to move left arm to rail with twisting movement then corrected movement when cued to use other leg to step down. Will trial stairs with next visit during CG training M5 PT-IP Objective Assessments Start: 11/08/19 15:35 Freq: NEEDED Status: Active Protocol: Document 11/09/19 11:45 AW (Rec: 11/09/19 12:07 AW [id number]) Orientation Orientation/Cognition Level of Alertness Alert Orientation Name,Day of Week,Place, Situation Language Function Ability No Deficits Noted Safety Awareness Decreased Safety Awareness Memory Description No Deficits Noted Gross Range of Motion Lower Extremity ROM Assessment Bilaterally Impaired Strength Lower Extremity Strength Assessment Bilaterally Impaired Hip 3+/5 Knee 4/5 Ankle 4/5 Coordination Assessment Gross Coordination Gross Coordination WNL Sensation Assessment Sensation Gross Sensation WNL Muscle Tone Muscle Tone WNL Yes M6 PT-IP Treatment Start: 11/08/19 15:35 Freq: NEEDED Status: Active Protocol: Document 11/10/19 13:31 FLORI (Rec: 11/10/19 14:18 LJ [email or web address]) Physical Therapy Treatment Education Education Provided Precautions,Safety M7 PT-IP Assessment and Plan Start: 11/08/19 15:35 Freq: NEEDED Status: Active Protocol: Document 11/10/19 13:31 FLORI (Rec: 11/10/19 14:18 LJ [email or web address]) PT Summary Assessment and Plan Potential Rehabilitation Potential Good Summary Impairments Pain,ROM,Strength,Balance,Bed Mobility,Transfers,Gait, Activity Tolerance Assessment Summary Pt improved sit<>stand technique with hip hinge and less lurching to complete stand. Appropriate FWW mangement during ambulation as well as appropriate posture. CGT at 10 am on Goals Bed Mobility Goal Standby Assistance Transfer Goal Standby Assistance,Front Wheeled Walker Gait Goal Standby Assistance,Front Wheel Walker Gait Distance 75 Other Goals - up/down 2 stairs with left rail ascending SBA Days to Meet Goals 3 Frequency of Treatment Frequency Of Treatment Twice a Day Treatment Plan Physical Therapy Treatment Plan Bed Mobility Training,Transfer Training,Gait Training, Therapeutic Exercise,Balance Retraining,Post Op Education, Discharge Planning,Hot or Cold Pack,Neuromuscular Re-ed, Coordination Retraining,Manual Therapy Other Recommendations and Next Treatment Caregiver training with stairs Focus and mobility, especially transfers. May need training to cue to hip hinge. Recommendations To Nursing Amount of Assist Needed 1 Person Assist Discharge Recommendations PT Discharge Recommendations Home with Assistance,Home Health Transportation Needs at Discharge Private Vehicle
[2019-11-10 15:35] VITALS: BP 144/74; PULSE 65; RESP 18; TEMP 37.4; O2SAT 95
[2019-11-10] MEDS: ACETAMINOPHEN 325 MG TABLET 650 MG PO (17:21)
--- NOTE | 2019-11-10 18:44 | PC.NURSE ---
Addendum entered by Tasneem Morales R.N. 11/10/19 22:47: Mostly sleeping when in bed. Rouses easily to voice. CPAP for sleep. Pt reports anticipates discharge to home tomorrow. Original Note: Pt up in recliner for evening meal. Rates incisional pain to back 5/10. Reports full sensation to BL LE's. Standby assistance into bathroom to void. Requires assistance by staff to move legs into bed to observe log rolling technique. Distal aspect of coversite dressings x 2 to central lower back beginning to curl up. Reinforced with silk tape. Pt declines to wear BL scd's. Encouraged ankle waving and calf pumping and rationale provided for same.
[2019-11-10 20:00] VITALS: BP 147/71; PULSE 63; RESP 16; TEMP 37; O2SAT 95
[2019-11-10] MEDS: ATORVASTATIN 20 MG TABLET 80 MG PO (21:17)
[2019-11-10] MEDS: SENNOSIDES 8.6 MG TABLET 17.2 MG PO (21:18)
[2019-11-11 00:03] VITALS: BP 140/65; PULSE 60; RESP 18; TEMP 36.9; O2SAT 95
[2019-11-11] MEDS: hydrOXYzine pamoate 25 MG CAPSULE PO (01:39)
[2019-11-11] MEDS: HYDROMORPHONE 2 MG TABLET PO ×3 (06:03→13:32)
[2019-11-11 09:00] VITALS: BP 159/84; PULSE 71; RESP 18; TEMP 36.8; O2SAT 96
[2019-11-11] MEDS: carvediloL 25 MG TABLET PO (10:00)
--- NOTE | 2019-11-11 10:51 | PT.IPTN ---
Current Diagnoses Other secondary scoliosis, lumbar region (11/08/19) Spinal stenosis, lumbar region without neurogenic claudication (11/08/19) Postlaminectomy syndrome, not elsewhere classified (11/08/19) Arthrodesis status (11/08/19) Surgery Performed Operation Date: 11/08/19 07:45 Actual Procedures p L2-3, L3-4 TLIF w/ posterior instrumentation - Brannon Kamara MD Physical Therapy Treatment Note M2 PT-IP Current Condition Start: 11/08/19 15:35 Freq: NEEDED Status: Active Protocol: Document 11/09/19 11:45 AW (Rec: 11/09/19 12:07 AW [id number]) Physical Therapy Current Condition Current Condition Evaluation Date 11/09/19 Treatment Diagnosis L2-4 TLIF, impaired mobility Onset Date 11/08/19 Precautions Lumbar Precautions Log Roll,No Twisting,Limit Bending,Lifting Restriction of 10 lbs,Gait Belt above Incisional Area Weight Bearing Status Weight Bearing Status Full Weight Bearing M3 PT-IP Subjective Start: 11/08/19 15:35 Freq: NEEDED Status: Active Protocol: Document 11/11/19 10:39 AW (Rec: 11/11/19 10:50 AW [id number]) Subjective Physical Therapy Visit Type Type Treatment Note Visit Start Time 10:19 Visit Stop Time 10:33 Total Visit Minutes 14 Physical Therapy Visit Comments Patient Comments Pt is looking forward to discharge today Therapy Pain Assessment Pain When Pain Assessed During Mobility Pain Present Pain Present Pain Reported Location Back Intensity 5 Scale Used Numeric (1 - 10) Pain Management Techniques Re-positioning,Timing of Activity with Medications M4 PT-IP Mobility and Gait Start: 11/08/19 15:35 Freq: NEEDED Status: Active Protocol: Document 11/11/19 10:39 AW (Rec: 11/11/19 10:50 AW [id number]) PT-Transfer Assessment Sit to and From Stand Sit to and from Stand Contact Guard Assistance,1 Person Assistance,Use of Upper Extremities Equipment Transfer Assistive Device Gait Belt,Front Wheeled Walker Orthotic/Prosthetic Devices or Brace: No Transfers Transfer Destination Chair Transfer Technique pt ambulated with FWW Transfer Ability Level of Assist Standby Assistance,1 Person Assistance Comments Mobility Comments Pt improved with hip hinge form today, requiring decreased level of assist for sit to stand and transfers. Gait Assessment Gait Gait Assistance Required: Standby Assistance Distance (Feet) 200 Able to Maintain Weight Bearing Status Yes During Gait Assistive Devices Assistive Device Gait Belt,Front Wheeled Walker Orthotic/Prosthetic Devices or Brace: No Gait Deviations General Gait Pattern Antalgic,Decreased Stride Length,Decreased Feet Clearance,Flexed Trunk,Wide Based Gait Factors Limiting Gait Function Factors Limiting Gait Function Decreased Activity Tolerance, Decreased Strength,Limited Range of Motion,Pain,Poor Balance,Poor Safety Awareness Comments Gait Comments Pt ambulated from 216 to the stairs without rest break and with good attention to lumbar precautions SBA with FWW. Stair Climbing Assessment Evaluation Level of Assist On Stairs Standby Assistance,1 Person Assistance Devices Stair Climbing Assistive Devices Left Railing Technique/Endurance Stair Climbing Direction Ascend and Descend Stair Climbing Technique Step to Step Number of Steps Climbed 3 Stair Climbing Set # Repetitions (reps) 2 Comments Stair Climbing Comments Demonstrated that pt could face the railing in order to more easily maintain lumbar precautions since he likes to have both hands on the rail. Pt responded positively and was able to return demonstrate . M5 PT-IP Objective Assessments Start: 11/08/19 15:35 Freq: NEEDED Status: Active Protocol: Document 11/09/19 11:45 AW (Rec: 11/09/19 12:07 AW [id number]) Orientation Orientation/Cognition Level of Alertness Alert Orientation Name,Day of Week,Place, Situation Language Function Ability No Deficits Noted Safety Awareness Decreased Safety Awareness Memory Description No Deficits Noted Gross Range of Motion Lower Extremity ROM Assessment Bilaterally Impaired Strength Lower Extremity Strength Assessment Bilaterally Impaired Hip 3+/5 Knee 4/5 Ankle 4/5 Coordination Assessment Gross Coordination Gross Coordination WNL Sensation Assessment Sensation Gross Sensation WNL Muscle Tone Muscle Tone WNL Yes M6 PT-IP Treatment Start: 11/08/19 15:35 Freq: NEEDED Status: Active Protocol: Document 11/11/19 10:39 AW (Rec: 11/11/19 10:50 AW [id number]) Physical Therapy Treatment Education Education Provided Precautions,Safety M7 PT-IP Assessment and Plan Start: 11/08/19 15:35 Freq: NEEDED Status: Active Protocol: Document 11/11/19 10:39 AW (Rec: 11/11/19 10:50 AW [id number]) PT Summary Assessment and Plan Potential Rehabilitation Potential Good Status of Condition at Evaluation Stable Summary Impairments Pain,ROM,Strength,Balance,Bed Mobility,Transfers,Gait, Activity Tolerance Progress Towards Goals Progressing Toward Goals Assessment Summary Pt requiring overall less assist with all mobility and improved his performance on the stairs. Plan on caregiver training this afternoon prior to discharge. Goals Bed Mobility Goal Standby Assistance Transfer Goal Standby Assistance,Front Wheeled Walker Gait Goal Standby Assistance,Front Wheel Walker Gait Distance 75 Other Goals - up/down 2 stairs with left rail ascending SBA Days to Meet Goals 1 Frequency of Treatment Frequency Of Treatment Twice a Day Treatment Plan Physical Therapy Treatment Plan Bed Mobility Training,Transfer Training,Gait Training, Therapeutic Exercise,Balance Retraining,Post Op Education, Discharge Planning,Hot or Cold Pack,Neuromuscular Re-ed, Coordination Retraining,Manual Therapy Other Recommendations and Next Treatment Caregiver training with stairs Focus and mobility, especially transfers. May need training to cue to hip hinge. Recommendations To Nursing Amount of Assist Needed Standby Assistance Discharge Recommendations PT Discharge Recommendations Home with Assistance,Home Health Transportation Needs at Discharge Private Vehicle
--- NOTE | 2019-11-11 10:53 | PT.IPTN ---
Current Diagnoses Other secondary scoliosis, lumbar region (11/08/19) Spinal stenosis, lumbar region without neurogenic claudication (11/08/19) Postlaminectomy syndrome, not elsewhere classified (11/08/19) Arthrodesis status (11/08/19) Surgery Performed Operation Date: 11/08/19 07:45 Actual Procedures p L2-3, L3-4 TLIF w/ posterior instrumentation - Brannon Kamara MD Physical Therapy Treatment Note M2 PT-IP Current Condition Start: 11/08/19 15:35 Freq: NEEDED Status: Active Protocol: Document 11/09/19 11:45 AW (Rec: 11/09/19 12:07 AW [id number]) Physical Therapy Current Condition Current Condition Evaluation Date 11/09/19 Treatment Diagnosis L2-4 TLIF, impaired mobility Onset Date 11/08/19 Precautions Lumbar Precautions Log Roll,No Twisting,Limit Bending,Lifting Restriction of 10 lbs,Gait Belt above Incisional Area Weight Bearing Status Weight Bearing Status Full Weight Bearing M3 PT-IP Subjective Start: 11/08/19 15:35 Freq: NEEDED Status: Active Protocol: Document 11/11/19 10:39 AW (Rec: 11/11/19 10:50 AW [id number]) Subjective Physical Therapy Visit Type Type Treatment Note Visit Start Time 10:07 Visit Stop Time 10:18 Total Visit Minutes 11 Physical Therapy Visit Comments Patient Comments Pt is looking forward to discharge today Therapy Pain Assessment Pain When Pain Assessed During Mobility Pain Present Pain Present Pain Reported Location Back Intensity 5 Scale Used Numeric (1 - 10) Pain Management Techniques Re-positioning,Timing of Activity with Medications M4 PT-IP Mobility and Gait Start: 11/08/19 15:35 Freq: NEEDED Status: Active Protocol: Document 11/11/19 10:39 AW (Rec: 11/11/19 10:50 AW [id number]) PT-Transfer Assessment Sit to and From Stand Sit to and from Stand Contact Guard Assistance,1 Person Assistance,Use of Upper Extremities Equipment Transfer Assistive Device Gait Belt,Front Wheeled Walker Orthotic/Prosthetic Devices or Brace: No Transfers Transfer Destination Chair Transfer Technique pt ambulated with FWW Transfer Ability Level of Assist Standby Assistance,1 Person Assistance Comments Mobility Comments Pt improved with hip hinge form today, requiring decreased level of assist for sit to stand and transfers. Gait Assessment Gait Gait Assistance Required: Standby Assistance Distance (Feet) 200 Able to Maintain Weight Bearing Status Yes During Gait Assistive Devices Assistive Device Gait Belt,Front Wheeled Walker Orthotic/Prosthetic Devices or Brace: No Gait Deviations General Gait Pattern Antalgic,Decreased Stride Length,Decreased Feet Clearance,Flexed Trunk,Wide Based Gait Factors Limiting Gait Function Factors Limiting Gait Function Decreased Activity Tolerance, Decreased Strength,Limited Range of Motion,Pain,Poor Balance,Poor Safety Awareness Comments Gait Comments Pt ambulated from 216 to the stairs without rest break and with good attention to lumbar precautions SBA with FWW. Stair Climbing Assessment Evaluation Level of Assist On Stairs Standby Assistance,1 Person Assistance Devices Stair Climbing Assistive Devices Left Railing Technique/Endurance Stair Climbing Direction Ascend and Descend Stair Climbing Technique Step to Step Number of Steps Climbed 3 Stair Climbing Set # Repetitions (reps) 2 Comments Stair Climbing Comments Demonstrated that pt could face the railing in order to more easily maintain lumbar precautions since he likes to have both hands on the rail. Pt responded positively and was able to return demonstrate . M5 PT-IP Objective Assessments Start: 11/08/19 15:35 Freq: NEEDED Status: Active Protocol: Document 11/09/19 11:45 AW (Rec: 11/09/19 12:07 AW [id number]) Orientation Orientation/Cognition Level of Alertness Alert Orientation Name,Day of Week,Place, Situation Language Function Ability No Deficits Noted Safety Awareness Decreased Safety Awareness Memory Description No Deficits Noted Gross Range of Motion Lower Extremity ROM Assessment Bilaterally Impaired Strength Lower Extremity Strength Assessment Bilaterally Impaired Hip 3+/5 Knee 4/5 Ankle 4/5 Coordination Assessment Gross Coordination Gross Coordination WNL Sensation Assessment Sensation Gross Sensation WNL Muscle Tone Muscle Tone WNL Yes M6 PT-IP Treatment Start: 11/08/19 15:35 Freq: NEEDED Status: Active Protocol: Document 11/11/19 10:39 AW (Rec: 11/11/19 10:50 AW [id number]) Physical Therapy Treatment Education Education Provided Precautions,Safety M7 PT-IP Assessment and Plan Start: 11/08/19 15:35 Freq: NEEDED Status: Active Protocol: Document 11/11/19 10:39 AW (Rec: 11/11/19 10:50 AW [id number]) PT Summary Assessment and Plan Potential Rehabilitation Potential Good Status of Condition at Evaluation Stable Summary Impairments Pain,ROM,Strength,Balance,Bed Mobility,Transfers,Gait, Activity Tolerance Progress Towards Goals Progressing Toward Goals Assessment Summary Pt requiring overall less assist with all mobility and improved his performance on the stairs. Plan on caregiver training this afternoon prior to discharge. Goals Bed Mobility Goal Standby Assistance Transfer Goal Standby Assistance,Front Wheeled Walker Gait Goal Standby Assistance,Front Wheel Walker Gait Distance 75 Other Goals - up/down 2 stairs with left rail ascending SBA Days to Meet Goals 1 Frequency of Treatment Frequency Of Treatment Twice a Day Treatment Plan Physical Therapy Treatment Plan Bed Mobility Training,Transfer Training,Gait Training, Therapeutic Exercise,Balance Retraining,Post Op Education, Discharge Planning,Hot or Cold Pack,Neuromuscular Re-ed, Coordination Retraining,Manual Therapy Other Recommendations and Next Treatment Caregiver training with stairs Focus and mobility, especially transfers. May need training to cue to hip hinge. Recommendations To Nursing Amount of Assist Needed Standby Assistance Discharge Recommendations PT Discharge Recommendations Home with Assistance,Home Health Transportation Needs at Discharge Private Vehicle
--- NOTE | 2019-11-11 11:21 | OT.IPNOTE ---
Pt states just wanting to work with PT for caregiver training and feels comfortable with all OT needs at this time. Therefore pt not seen by OT today.
--- NOTE | 2019-11-11 11:24 | PM.PN.1 ---
Exam Vital Signs (past 8 hours): - 11/11/19 09:00 Temperature 98.3 F Pulse Rate 71 Respiratory Rate 18 Blood Pressure 159/84 H Pulse Oximetry 96 Oxygen Delivery Method Room Air Oxygen Flow Rate 0 Objective Labs Result Diagrams: 11/09/19 04:45 Assessment & Plan Assessment & Plan narrative: POD#3 s/p lumbar fusion. Pain well controlled on oral medication. Dressing clean and dry Neuro intact on exam. Cleared by PT to d/c home today Quality VTE Deep Vein Thrombosis/Pulmonary Embolism Present on Admission: No
[2019-11-11] MEDS: SODIUM CHLORIDE 0.9% FLUSH 10 ML IV (11:39)
[2019-11-11] MEDS: DOCUSATE 100 MG CAPSULE PO (11:39)
[2019-11-11 12:00] VITALS: BP 143/74; PULSE 59; RESP 18; TEMP 37.2; O2SAT 94
--- NOTE | 2019-11-11 14:32 | PC.NURSE ---
Discharge instructions and home care handouts reviewed with patient and his . Patient states understanding and has no further questions or concerns at this time. Coversite intact to back. Patient instructed to follow up with Dr. Kamara as scheduled. Instructed to call his surgeon with any questions or concerns, or signs of infection including unmanaged pain, unusual drainage, fevers, n/v.
--- NOTE | 2019-11-11 14:50 | PT.IPTN ---
Current Diagnoses Other secondary scoliosis, lumbar region (11/08/19) Spinal stenosis, lumbar region without neurogenic claudication (11/08/19) Postlaminectomy syndrome, not elsewhere classified (11/08/19) Arthrodesis status (11/08/19) Surgery Performed Operation Date: 11/08/19 07:45 Actual Procedures p L2-3, L3-4 TLIF w/ posterior instrumentation - Brannon Kamara MD Physical Therapy Treatment Note M2 PT-IP Current Condition Start: 11/08/19 15:35 Freq: NEEDED Status: Discharge Protocol: Document 11/09/19 11:45 AW (Rec: 11/09/19 12:07 AW [id number]) Physical Therapy Current Condition Current Condition Evaluation Date 11/09/19 Treatment Diagnosis L2-4 TLIF, impaired mobility Onset Date 11/08/19 Precautions Lumbar Precautions Log Roll,No Twisting,Limit Bending,Lifting Restriction of 10 lbs,Gait Belt above Incisional Area Weight Bearing Status Weight Bearing Status Full Weight Bearing M3 PT-IP Subjective Start: 11/08/19 15:35 Freq: NEEDED Status: Discharge Protocol: Document 11/11/19 14:36 AW (Rec: 11/11/19 16:28 AW [id number]) Subjective Physical Therapy Visit Type Type Treatment Note Visit Start Time 14:20 Visit Stop Time 14:36 Total Visit Minutes 16 Notes Pt's , Frannie, present for caregiver training Physical Therapy Visit Comments Patient Comments Pt is ready to go home Therapy Pain Assessment Pain When Pain Assessed During Mobility Pain Present Pain Present Pain Reported M4 PT-IP Mobility and Gait Start: 11/08/19 15:35 Freq: NEEDED Status: Discharge Protocol: Document 11/11/19 14:36 AW (Rec: 11/11/19 16:28 AW [id number]) PT-Bed Mobility Assessment Rolling Type of Rolling Log Rolling,Roll to Left Level of Assist Standby Assistance Supine to Sit Supine to Sit Minimal Assistance Scooting Scooting to Edge of Bed Standby Assistance PT-Transfer Assessment Sit to and From Stand Sit to and from Stand Standby Assistance,Use of Upper Extremities Equipment Transfer Assistive Device Gait Belt,Front Wheeled Walker Orthotic/Prosthetic Devices or Brace: No Transfers Transfer Destination Chair Transfer Technique pt ambulated with FWW Transfer Ability Level of Assist Standby Assistance,1 Person Assistance,Use of Upper Extremities Comments Mobility Comments Pt's participated by donning the gait belt and providing appropriate cues for bed mobility as needed. After brief demonstration, she was able to guard the pt during ambulation with FWW. At the stairs, she provided SBA and demonstrated good understanding of technique. Upon return to the room, pt transferred to the window seat in preparation to get dressed for discharge. Gait Assessment Gait Gait Assistance Required: Standby Assistance Distance (Feet) 200 Able to Maintain Weight Bearing Status Yes During Gait Assistive Devices Assistive Device Gait Belt,Front Wheeled Walker Orthotic/Prosthetic Devices or Brace: No Gait Deviations General Gait Pattern Antalgic,Decreased Feet Clearance,Flexed Trunk,Wide Based Gait Factors Limiting Gait Function Factors Limiting Gait Function Decreased Activity Tolerance, Decreased Strength,Limited Range of Motion,Pain Stair Climbing Assessment Evaluation Level of Assist On Stairs Standby Assistance,1 Person Assistance Devices Stair Climbing Assistive Devices Left Railing Technique/Endurance Stair Climbing Direction Ascend and Descend Stair Climbing Technique Step to Step Number of Steps Climbed 3 Stair Climbing Set # Repetitions (reps) 2 Comments Stair Climbing Comments Pt's able to provide appropriate level of assist and verbal cues. M5 PT-IP Objective Assessments Start: 11/08/19 15:35 Freq: NEEDED Status: Discharge Protocol: Document 11/09/19 11:45 AW (Rec: 11/09/19 12:07 AW [id number]) Orientation Orientation/Cognition Level of Alertness Alert Orientation Name,Day of Week,Place, Situation Language Function Ability No Deficits Noted Safety Awareness Decreased Safety Awareness Memory Description No Deficits Noted Gross Range of Motion Lower Extremity ROM Assessment Bilaterally Impaired Strength Lower Extremity Strength Assessment Bilaterally Impaired Hip 3+/5 Knee 4/5 Ankle 4/5 Coordination Assessment Gross Coordination Gross Coordination WNL Sensation Assessment Sensation Gross Sensation WNL Muscle Tone Muscle Tone WNL Yes M6 PT-IP Treatment Start: 11/08/19 15:35 Freq: NEEDED Status: Discharge Protocol: Document 11/11/19 14:36 AW (Rec: 11/11/19 16:28 AW [id number]) Physical Therapy Treatment Education Education Provided Precautions,Safety M7 PT-IP Assessment and Plan Start: 11/08/19 15:35 Freq: NEEDED Status: Discharge Protocol: Document 11/11/19 14:36 AW (Rec: 11/11/19 16:28 AW [id number]) PT Summary Assessment and Plan Potential Rehabilitation Potential Good Status of Condition at Evaluation Stable Summary Impairments Pain,ROM,Strength,Balance,Bed Mobility,Transfers,Gait, Activity Tolerance Progress Towards Goals Progressing Toward Goals Assessment Summary Pt has good support at home from his spouse who is able to safely provide assist as needed. He is safe to discharge once medically cleared. Goals Bed Mobility Goal Standby Assistance Transfer Goal Standby Assistance,Front Wheeled Walker Gait Goal Standby Assistance,Front Wheel Walker Gait Distance 75 Other Goals - up/down 2 stairs with left rail ascending SBA Days to Meet Goals 1 Frequency of Treatment Frequency Of Treatment Twice a Day Treatment Plan Physical Therapy Treatment Plan Bed Mobility Training,Transfer Training,Gait Training, Therapeutic Exercise,Balance Retraining,Post Op Education, Discharge Planning,Hot or Cold Pack,Neuromuscular Re-ed, Coordination Retraining,Manual Therapy Recommendations To Nursing Amount of Assist Needed 1 Person Assist Discharge Recommendations PT Discharge Recommendations Home with Assistance,Home Health Transportation Needs at Discharge Private Vehicle
--- NOTE | 2019-11-13 15:08 | P.DS_ITS ---
History of Present Illness History of Present Illness Date Patient Seen: 11/11/19 Time Patient Seen: 11:08 Chief complaint: [id number] Discharge Providers Provider Date of admission: 11/08/19 06:21 Discharge Date: 11/11/19 Primary care physician: Madelyn Hernandez DO Consults: 10/26/19 10:59 Consult to Anesthesiology Routine Comment: Consulting Provider: Anesthesiologist Reason for consultation: Surgeon requested re: Cardiac 11/08/19 07:02 Consult to Respiratory Therapy Evaluate & Treat Comment: Physician Instructions: Evaluate and treat 11/08/19 11:15 Consult to Physician Routine Comment: consult to primary care provider for followup Consulting Provider: Brannon Kamara Reason for consultation: Positive STOP BANG, management of obstructive sleep apnea Has provider been notified: Yes 11/08/19 12:32 Consult to Respiratory Therapy Evaluate & Treat Comment: BMI >40; DANNA w/ CPAP; Pacemaker dependent Physician Instructions: Evaluate and treat 11/08/19 14:31 Consult to Occupational Therapy Evaluate & Treat Comment: Physician Instructions: Evaluate and treat Consult to Physical Therapy Evaluate & Treat Comment: Physician Instructions: Evaluate and Treat Discharge provider: Paulie Mason PA-C Summary Hospital Course Discharge Diagnosis: Pre-op diagnosis: 1. L2-3, L3-4 spinal stenosis 2. Lumbar scoliosis 3. Lumbar spondylosis with radiculopathy Morbid obesity Post-op diagnosis: same Morbid obesity, BMI 40.7 [place] [address] Operative Note Patient: Corby Saez [facility]#: [id number] : 5Acct:[id number] Age/Sex: 74 / M Date of Service: 11/08/19 Provider: Brannon Kamara MD Operative Date/Time/Diagnoses Date of procedure: 11/08/19 Time of procedure: 07:40 Pre-op diagnosis: 1. L2-3, L3-4 spinal stenosis 2. Lumbar scoliosis 3. Lumbar spondylosis with radiculopathy Post-op diagnosis: same Procedure & Clinicians Procedure: 1. L2-3, L3-4 Postero-lateral and posterior interbody fusion 2. L2-3, L3-4 interbody cage placement. 3. L2-3, L3-4 decompressive laminectomy with bilateral facetecomies 4. L2-3, L3-4 Posterior segmental instrumentation 5. Winston of bone marrow from iliac crest 6. Utilization of microsurgical technique and operating microscope Same procedure as scheduled: Yes Indications: Patient has been having chronic back pain and worsening lumbar radiculopathy. Patient failed multiple conservative management with worsening pain weakness and numbness in her lower extremity. Patient has been having difficulty performing activity of daily living. After discussing risks benefits of treatment options, patient elected proceed with surgery. Surgeon: Brannon Kamara Senior Etl Developer: Angelita Cummins Click Yes if Unassisted: No Anesthesia Type: General Operative Notes Closure Type: primary Specimen(s): none sent Prosthetic devices, grafts, tissues, transplants, or devices: Globus revolve, Rise cages Applied: catheter Estimated Blood Loss (mL): 100 Exam Vital Signs (past 8 hours): Oxygen Delivery Method Room Air Oxygen Flow Rate 0 Narrative Exam Narrative: see progress note Objective Labs Result Diagrams: 11/09/19 04:45 Discharge Plan Discharge Plan Patient Disposition: Home Discharge comment: Use pain medication only as needed Hold Eliquis until 11/14 then resume Use oxycodone for breakthrough pain Discharge orders & Medications Prescriptions: New hydromorphone 2 mg Tablet 2 mg PO Q4-5H PRN (Reason: Pain, Moderate (4-6)) Qty: 80 RF: 0 hydroxyzine pamoate 25 mg Capsule 25 mg PO Q4HR PRN (Reason: Nausea And Vomiting) Qty: 30 RF: 0 oxycodone 10 mg Tablet 10 mg PO Q6-12H PRN (Reason: Pain, Severe (7-10)) Qty: 30 RF: 0 Continued atorvastatin 80 mg Tablet 80 mg PO DAILY RF: 0 carvedilol 25 mg Tablet 25 mg PO BID RF: 0 acetaminophen [Tylenol Extra Strength] 500 mg Tablet 500 mg PO Q6H PRN (Reason: Pain) RF: 0 Eliquis 5 mg Tablet 5 mg PO BID RF: 0 Follow up/Referrals: Madelyn Hernandez DO [Primary Care Provider] - Brannon Kamara MD [Physician] - As previously scheduled Diet/Activity/Treatments Diet: Diet as Tolerated and Regular Activity: Limit bending and twisting Skin/Wound/Dressing Care Report to your healthcare provider any signs of infection, such as:: chills, fever, night sweats, increased pain, unusual drainage and unusual redness Dressing: Keep dressing clean and dry for 2 weeks Shower with dressing covered for 2 weeks Visit Report/Discharge Packet Instructions: DI for Constipation, How to Prevent Falls, DI for Prescription Opioid Use, DI for Transforaminal Lumbar Interbody Fusion Stand Alone Forms: Surgery Discharge Visit Report Forms: Patient Portal/API, Stroke Signs & Symptoms Discharge Data Primary Care Provider: Madelyn Hernandez Discharges patient from system. Discharge Date/Time: 11/11/19 15:00 Quality VTE Deep Vein Thrombosis/Pulmonary Embolism Present on Admission: No
== END 2019-11-11 15:00 | disposition home or self-care (01) | DRG 454 ==
PROVIDERS: Admitting Provider Orthopaedic Surgery Orthopaedic Surgery of the Spine; PCP Family Medicine; Referring Provider Orthopaedic Surgery Orthopaedic Surgery of the Spine; Visit Provider Orthopaedic Surgery Orthopaedic Surgery of the Spine
PROC: 0SG10AJ Fusion of 2 or more Lumbar Vertebral Joints with Interbody Fusion Device, Posterior Approach, Anterior Column, Open Approach (ICD-10-PCS; principal; 2019-11-08 07:45)
DX: M41.56 Other secondary scoliosis, lumbar region (principal); I47.2 Ventricular tachycardia; Z68.41 Body mass index [BMI] 40.0-44.9, adult; M48.061 Spinal stenosis, lumbar region without neurogenic claudication; M47.26 Other spondylosis with radiculopathy, lumbar region; M96.1 Postlaminectomy syndrome, not elsewhere classified; I10 Essential (primary) hypertension; E78.5 Hyperlipidemia, unspecified; G47.33 Obstructive sleep apnea (adult) (pediatric); E66.01 Morbid (severe) obesity due to excess calories; Z95.0 Presence of cardiac pacemaker; I49.5 Sick sinus syndrome; I48.0 Paroxysmal atrial fibrillation; Z98.1 Arthrodesis status; Z87.891 Personal history of nicotine dependence
CPT/HCPCS: 36415; 72100; 76000; 85014; 85018; 97116; 97161; 97165; 97530; 97535; C1776; C9290; J0131; J0330; J1100; J1170; J2060; J2250; J2405; J2704; J3010; J3410